=== PATIENT | female | born 1985 | race Caucasian/White ===

== ENCOUNTER → 2016-09-19 16:19 | Outpatient (CLI) | payer OTHER ==
[2016-09-19 16:38] LABS: BASOPHILS 0 % (0.0-2.0); EOSINOPHILS 0.7 % (0-7); HEMATOCRIT 41.7 % (36.0-48.0); IMMATURE GRANULOCYTES 0.1 % (0-5); LYMPHOCYTES 45.2 % (15-50); MCH 31.2 pg (26.0-34.0); MCHC 33.6 g/dL (31.0-37.0); MCV 92.9 fL (80.0-100.0); MEAN PLATELET VOLUME 10.4 fL (7.4-10.4); MONOCYTES 4.9 % (2-11); NEUTROPHILS 49.1 % (40-80); PLATELET COUNT 256 10x3/uL (130-400); RBC 4.49 10x6/uL (4.00-5.40); RDW 13.2 % (11.5-14.5); WBC 9.4 10x3/uL (4.8-10.8)
[2016-09-19 16:50] LABS: ALBUMIN 3.5 g/dL (3.4-5.0); ALKALINE PHOSPHATASE 70 U/L (46-116); ALT (SGPT) 28 U/L (10-68); BILIRUBIN - TOTAL 0.21 mg/dL (0.2-1.3); CALC OSMOLALITY 275 mosm/kg (275-300); CALCIUM 8.7 mg/dL (8.5-10.1); CARBON DIOXIDE 29.8 mmol/L (21.0-32.0); CHLORIDE - SERUM 103 mmol/L (98-107); CREATININE - SERUM 0.9 mg/dL (0.6-1.3); GLUCOSE 76 mg/dL (74-106); POTASSIUM - SERUM 3.6 mmol/L (3.5-5.1); PROTEIN - SERUM 7.2 g/dL (6.4-8.2); SODIUM 139 mmol/L (136-145); UREA NITROGEN 11 mg/dL (7-18); eGFR NON AFRICAN AMERICAN 76 mL/min (90-120)
[2016-09-23 13:12] LABS: EHRLICHIA CHAFF IGG Negative (Neg:<1:64); EHRLICHIA CHAFF IGM Negative (Neg:<1:20); HGE IGG TITER Negative (Neg:<1:64); HGE IGM TITER Negative (Neg:<1:20)
[2016-09-23 20:07] LABS: RMSF IGM 0.62 index (0.00-0.89)
[2016-10-03 08:21] LABS: F. TULARENSIS - IGG Negative (()); F. TULARENSIS - IGM Negative (())
== END | disposition home or self-care (01) ==
LOC: D.LABREF 16:19
PROVIDERS: Student in an Organized Health Care Education/Training Program
DX: R53.83 Other fatigue (principal)

== ENCOUNTER → 2016-10-17 11:34 | Outpatient (CLI) | payer OTHER ==
[2016-10-17 12:02] LABS: BASOPHILS 0.1 % (0.0-2.0); EOSINOPHILS 0.5 % (0-7); HEMATOCRIT 42.1 % (36.0-48.0); HEMOGLOBIN 14.2 g/dL (12-16); IMMATURE GRANULOCYTES 0.2 % (0-5); LYMPHOCYTES 36.2 % (15-50); MCH 31.1 pg (26.0-34.0); MCHC 33.7 g/dL (31.0-37.0); MCV 92.3 fL (80.0-100.0); MEAN PLATELET VOLUME 10.9 fL (7.4-10.4); MONOCYTES 3.5 % (2-11); NEUTROPHILS 59.5 % (40-80); PLATELET COUNT 230 10x3/uL (130-400); RBC 4.56 10x6/uL (4.00-5.40); RDW 13.1 % (11.5-14.5); WBC 11.6 10x3/uL (4.8-10.8)
[2016-10-17 12:07] LABS: ALBUMIN 3.4 g/dL (3.4-5.0); ALKALINE PHOSPHATASE 60 U/L (46-116); ALT (SGPT) 31 U/L (10-68); BILIRUBIN - TOTAL 0.26 mg/dL (0.2-1.3); CALC OSMOLALITY 279 mosm/kg (275-300); CALCIUM 8.6 mg/dL (8.5-10.1); CARBON DIOXIDE 29.1 mmol/L (21.0-32.0); CHLORIDE - SERUM 105 mmol/L (98-107); CREATININE - SERUM 0.9 mg/dL (0.6-1.3); GLUCOSE 83 mg/dL (74-106); POTASSIUM - SERUM 3.9 mmol/L (3.5-5.1); PROTEIN - SERUM 6.7 g/dL (6.4-8.2); SODIUM 141 mmol/L (136-145); UREA NITROGEN 12 mg/dL (7-18); eGFR NON AFRICAN AMERICAN 76 mL/min (90-120)
== END | disposition home or self-care (01) ==
LOC: D.LABREF 11:34
PROVIDERS: Student in an Organized Health Care Education/Training Program
DX: R53.83 Other fatigue (principal)

== ENCOUNTER 2017-07-23 08:40 | Emergency (ER) | payer OTHER | END 2017-07-23 11:20 | disposition home or self-care (01) | LOC: D.ER 08:40 | DX: R51 Headache (principal); F17.200 Nicotine dependence, unspecified, uncomplicated ==

== ENCOUNTER 2019-10-23 13:43 | Inpatient (IN) | payer OTHER ==
[~2019-10-23] VITALS: Ht 154.9 cm; Wt 99.5 kg
[2019-10-23 14:39] LABS: BASOPHILS 0 % (0-2); EOSINOPHILS 0 % (0-7); HEMATOCRIT 41.5 % (36.0-48.0); HEMOGLOBIN 13.7 g/dL (12-16); IMMATURE GRANULOCYTES 0.3 % (0-5); LYMPHOCYTES 3.5 % (15-50); MCH 28.9 pg (26.0-34.0); MCV 87.6 fL (80.0-100.0); MEAN PLATELET VOLUME 10.7 fL (7.4-10.4); MONOCYTES 4.2 % (2-11); PLATELET COUNT 251 10x3/uL (130-400); RBC 4.74 10x6/uL (4.00-5.40); RDW 14.2 % (11.5-14.5); WBC 12.7 10x3/uL (4.8-10.8)
[2019-10-23 14:50] LABS: INR 1.03 (0.85-1.17); PROTIME 13.5 SECONDS (11.6-15.0)
[2019-10-23 14:51] LABS: CALC OSMOLALITY 278 mosm/kg (275-300); CALCIUM 9.2 mg/dL (8.5-10.1); CARBON DIOXIDE 27.1 mmol/L (21.0-32.0); CHLORIDE - SERUM 101 mmol/L (98-107); CREATININE - SERUM 0.9 mg/dL (0.6-1.3); D-DIMER-QUANTITATIVE 0.83 ug/mLFEU (0.20-0.54); GLUCOSE 117 mg/dL (74-106); POTASSIUM - SERUM 3.4 mmol/L (3.5-5.1); SODIUM 140 mmol/L (136-145); UREA NITROGEN 11 mg/dL (7-18); eGFR NON AFRICAN AMERICAN 75 mL/min (90-120)
[2019-10-23 15:09] LABS: ALBUMIN 3.9 g/dL (3.4-5.0); ALKALINE PHOSPHATASE 77 U/L (30-120); ALT (SGPT) 19 U/L (10-68); C-REACTIVE PROTEIN 3.1 mg/dL (0.0-0.9); CREATINE KINASE 70 UL (21-215); PROTEIN - SERUM 7.7 g/dL (6.4-8.2); THYROID STIMULATING HORMONE 0.67 uIU/mL (0.36-3.74)
[2019-10-23 15:13] LABS: TROPONIN-I < 0.017 ng/mL (0.000-0.060)
--- NOTE | 2019-10-23 15:20 | NUR ---
LACTIC ACID OF 2.1
--- NOTE | 2019-10-23 16:10 | NUR ---
NEW WRIST BAND PLACED ON PATIENT.
[2019-10-23 16:28] LABS: BACTERIA FEW /hpf (NEGATIVE); BILIRUBIN NEGATIVE (NEGATIVE); EPITHELIAL CELLS OCC /hpf (0-5); GLUCOSE NEGATIVE (NEGATIVE); KETONE LARGE mg/dL (NEGATIVE); NITRITE NEGATIVE (NEGATIVE); RED CELLS - URINE NONE SEEN /hpf (0-5); UROBILINOGEN NORMAL (NORMAL)
--- NOTE | 2019-10-23 17:17 | NUR ---
PT MOVED TO A NEGATIVE PRESSURE ROOM. [facility] NOTIFIED OF PT BY Zeeshan KHOURY . PT WEARING MASK. ISOLATION SET UP.
[2019-10-23 18:24] VITALS: BP 95/55
--- NOTE | 2019-10-23 19:00 | NUR ---
RECIEVED REPORT FROM BARBARA CASTANO. PT LAYING IN BED. RESPIRATIONS ARE EVEN AND UNLABORED. NO DISTRESS NOTED. WILL CONTINUE TO MONITOR PATIENT.
[2019-10-23 20:03] VITALS: BP 124/70
--- NOTE | 2019-10-23 20:03 | NUR ---
PT SITTING UP IN BED. VSS. NO DISTRESS NOTED. PT VOICES NO COMPLAINTS AT THIS TIME. PT CONTINUES TO REMAIN IN ISOLATION AT THIS TIME. PT PROVIDED WITH BEDSIDE COMMODE. WILL CONTINUE TO MONITOR FOR CHANGES.
--- NOTE | 2019-10-23 21:20 | NUR ---
PT REPORTS THAT SHE IS STARTING TO FEEL FEVERISH AT THIS TIME. PT TEMP FOUND TO BE 102.4. ADELA LADMINISTER IBUPROFEN FOR TEMPERATURE.
--- NOTE | 2019-10-23 21:26 | NUR ---
PT WEARING MASK AND COVERED WITH SHEET WITH BELONGINGS UNDER SHEET FOR TRANSPORT. PROPER PROCEDURE FOR TRANSPORT FOLLOWED. WASHTUB WORKER, AND INFECTION CONTROL MADE AWARE OF TRANSFER PRIOR TO DEPARTING ED.
--- NOTE | 2019-10-23 21:26 | NUR ---
STREP SWAB OBTAINED AT THIS TIME.
[2019-10-23] MEDS ORDERED: BUPROPION XL300 MG PO (22:03)
[2019-10-23] MEDS ORDERED: OMEPRAZOLE20 M1 PO (22:04)
[2019-10-23 23:13] VITALS: BP 101/55; BMI 41.4
--- NOTE | 2019-10-24 00:17 | NUR ---
RECEIVED REPORT FROM BIJAL CASTANO IN ER. ARRIVED TO FLOOR ON STRETCHER. PLACED ON CONTACT AND DROPLET ISOLATION. ALERT AND ORIENTED X4. UP AD REVA. TEMP. 102 ON ARRIVAL. MOTRIN GIVEN IN ER. WHEN RECHECKED 101.1. TYLENOL GIVEN. IV TO LT FA WITH NS INFUSING. DENIES ANY NEEDS. ASSESSMENT COMPLETED.
[2019-10-24 01:20] VITALS: BP 104/52
[2019-10-24 05:09] LABS: BASOPHILS 0 % (0-2); EOSINOPHILS 0 % (0-7); HEMATOCRIT 35.2 % (36.0-48.0); HEMOGLOBIN 11.2 g/dL (12-16); IMMATURE GRANULOCYTES 0.3 % (0-5); LYMPHOCYTES 10.3 % (15-50); MCH 28.5 pg (26.0-34.0); MCHC 31.8 g/dL (31.0-37.0); MEAN PLATELET VOLUME 10.1 fL (7.4-10.4); MONOCYTES 3.5 % (2-11); NEUTROPHILS 85.9 % (40-80); RBC 3.93 10x6/uL (4.00-5.40); RDW 14.6 % (11.5-14.5)
[2019-10-24 05:12] LABS: MCV 89.6 fL (80.0-100.0); PLATELET COUNT 200 10x3/uL (130-400); WBC 7.1 10x3/uL (4.8-10.8)
[2019-10-24 05:27] LABS: ALKALINE PHOSPHATASE 53 U/L (30-120); ALT (SGPT) 21 U/L (10-68); C-REACTIVE PROTEIN 13.7 mg/dL (0.0-0.9); CALCIUM 7.9 mg/dL (8.5-10.1); CARBON DIOXIDE 26.8 mmol/L (21.0-32.0); CHLORIDE - SERUM 108 mmol/L (98-107); CREATININE - SERUM 0.8 mg/dL (0.6-1.3); GLUCOSE 100 mg/dL (74-106); POTASSIUM - SERUM 3.4 mmol/L (3.5-5.1); SODIUM 141 mmol/L (136-145); eGFR NON AFRICAN AMERICAN 86 mL/min (90-120)
[2019-10-24 05:29] LABS: ALBUMIN 2.6 g/dL (3.4-5.0); CALC OSMOLALITY 278 mosm/kg (275-300); PROTEIN - SERUM 5.6 g/dL (6.4-8.2); UREA NITROGEN 8 mg/dL (7-18)
[2019-10-24 05:53] VITALS: BP 108/52
--- NOTE | 2019-10-24 06:27 | NUR ---
TEMP. ELEVATED TO 101.7. ACETAMENOPHEN 650 MG GIVEN. WILL REPORT TO ONCOMMING.
[2019-10-24 09:02] VITALS: BP 101/64
--- NOTE | 2019-10-24 09:10 | NUR ---
PT AWAKE AND ORIENTED, LYING IN BED WATCHING TV. MOVES ABOUT ROOM UNASSISTED. ENTERED ROOM FOLLOWING PROPPER PROTOCOL. V/S DOCUMENTED. NO FEVER NOTED AT THIS TIME. PTS HOME MEDS RESTARTED PER MARKUS ANDERSEN. NO COMPLAINT OR CONCERNS AT THIS TIME. PT HAS DARK CIRCLES UNDER HER EYES AND STATES LACK OF APPITITE X2 DAYS. IV INTACT AND WORKING, PT CHANGED INTO MORE COMFORTABLE CLOTHES. CL IN REACH, SRX2.
--- NOTE | 2019-10-24 10:20 | NUR ---
I have reviewed this patient and I concur with the Shift Assessment completed by the Licensed Practical Nurse today this shift.
[2019-10-24 11:45] VITALS: Ht 154.9 cm; Wt 99.5 kg
[2019-10-24 11:48] VITALS: BP 106/51
[2019-10-24 12:04] LABS: % SATURATION 5 % (15-55); IRON 15 ug/dl (35-150); TOTAL IRON BIND CAPACITY 281 ug/dl (260-445); UNSAT IRON BIND CAPACITY 266 ug/dl (150-375)
[2019-10-24 12:26] LABS: MAGNESIUM - SERUM 1.6 mg/dL (1.8-2.4)
[2019-10-24 16:14] VITALS: BP 116/57
--- NOTE | 2019-10-24 18:22 | NUR ---
PT AWAKE AND ORIENTED, SITTING IN THE BED. C/O COUGH/CONGESTION. NO OTHER COMPLAINTS OR CONCERNS AT THIS TIME. CL IN REACH, SRX12.
--- NOTE | 2019-10-24 20:21 | NUR ---
RECEIVED UP IN BED WITH EYES OPEN AND TV ON. ALERT AND ORIENTED X4. UP AD REVA. IV TO LT FA WITH NS AT 100CC/HR. NO REDNESS OR SWELLING TO SITE. CONT TO HAVE A COUGH. C/O TESSALON NOT WORKING. ALSO, C/O SORE THROAT. SAID SHE THINKS IT'S FROM COUGHING SO MUCH. DENIES ANY NEEDS LITA JONES.
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
[2019-10-25 02:27] VITALS: BP 108/68
[2019-10-25 06:17] VITALS: BP 118/66
[2019-10-25 08:52] VITALS: BP 136/77
[2019-10-25 09:02] LABS: CALC OSMOLALITY 275 mosm/kg (275-300); CALCIUM 8.1 mg/dL (8.5-10.1); CHLORIDE - SERUM 109 mmol/L (98-107); CREATININE - SERUM 0.7 mg/dL (0.6-1.3); GLUCOSE 90 mg/dL (74-106); POTASSIUM - SERUM 3.2 mmol/L (3.5-5.1); SODIUM 140 mmol/L (136-145); eGFR NON AFRICAN AMERICAN > 90 mL/min (90-120)
[2019-10-25 09:05] LABS: BASOPHILS 0.2 % (0-2); EOSINOPHILS 0.4 % (0-7); HEMATOCRIT 36.6 % (36.0-48.0); HEMOGLOBIN 11.8 g/dL (12-16); IMMATURE GRANULOCYTES 0.2 % (0-5); LYMPHOCYTES 20.4 % (15-50); MCH 28.1 pg (26.0-34.0); MCHC 32.2 g/dL (31.0-37.0); MEAN PLATELET VOLUME 10.4 fL (7.4-10.4); MONOCYTES 6.4 % (2-11); NEUTROPHILS 72.4 % (40-80); PLATELET COUNT 229 10x3/uL (130-400); RDW 14.6 % (11.5-14.5)
[2019-10-25 09:06] LABS: UREA NITROGEN 5 mg/dL (7-18)
[2019-10-25 09:13] LABS: MCV 87.1 fL (80.0-100.0); WBC 5.2 10x3/uL (4.8-10.8)
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
--- NOTE | 2019-10-25 12:14 | NUR ---
PT ALERT AND ORIENTED, DENIES LUNCH TRAY WITH BREAKFAST TRAY. JUST WANTS BOTTLE OF WATER. STILL UPSET AND WANTING TO D/C D/T NOT LIKING ISOLATION AND FEELING CLASTROPHOBIC. SPOKE TO MARKUS BENOIT WELL DR. TSE. CL IN REACH SRX2. WILL CNT. TO MONITOR.
--- NOTE | 2019-10-25 15:15 | NUR ---
I have reviewed this patient and I concur with the Shift Assessment completed by the Licensed Practical Nurse today this shift.
--- NOTE | 2019-10-25 15:16 | MORECARE ---
CASE MANAGEMENT DISCHARGE SUMMARY PATIENT: LAYNE LANE UNIT: [id number] ADM DATE: 10/23/19 AGE: 34 : 81 SEX: F ROOM/BED: D.2101 AUTHOR: YUSEF ALMEIDA PHYSICIAN: REFERRING PHYSICIAN: DYANA DE MD DATE OF SERVICE: 10/25/19 Discharge Plan Patient Name: LAYNE LANE [facility] [facility] 1985 Planned Disposition: Home Anticipated Discharge Date: 10/25/19 Discharge Date: Expected LOS: 2 Initial Reviewer: [email or web address] Initial Review Date: 10/24/2019 Generated: 10/25/19 4:16 pm DCPIA - Discharge Planning Initial Assessment Updated by [email or web address]: Johnny Michaud on 10/25/19 3:16 pm * Is the patient Alert and Oriented? Yes * How many steps to enter\exit or inside your home? * PCP DR. MURPHY NAPLES * Pharmacy [facility] OR [facility] [facility] * Preadmission Environment Home with Family * ADLs Independent * Equipment None * Other Equipment NO MEDICAL EQUIPMENT PROVIDER PREFERENCE * List name and contact numbers for known caregivers / representatives who currently or will assist patient after discharge: JAYNE LANE, SPOUSE, * Verbal permission to speak to the caregivers and representatives has been obtained from the patient. N/A * Community resources currently utilized None * Please name any agencies selected above. NONE * Additional services required to return to the preadmission environment? No * Can the patient safely return to the preadmission environment? Yes * Has this patient been hospitalized within the prior 30 days at any hospital? No Patient Name: LAYNE LANE Page [id number] at 1516 All edits/amendments must be made on the electronic document DICTATION DATE: 10/25/19 151 TRANSVERSE ABDOMINAL MUSCLE NURSE: CHELI 10/25/191515 RPT#: [id number] DC DATE: STATUS: ADM IN [facility] [address] [place] [address] END OF REPORT
--- NOTE | 2019-10-25 15:24 | MORECARE ---
CASE MANAGEMENT DISCHARGE SUMMARY PATIENT: LAYNE LANE UNIT: [id number] ADM DATE: 10/23/19 AGE: 34 : 81 SEX: F ROOM/BED: D.2105 AUTHOR: ELLE,DOC PHYSICIAN: REFERRING PHYSICIAN: DYANA DE MD DATE OF SERVICE: 10/25/19 Discharge Plan Patient Name: LAYNE LANE Facility: [facility]:[place] : 1985 Planned Disposition: Home Anticipated Discharge Date: 10/25/19 Discharge Date: Expected LOS: 2 Initial Reviewer: [email or web address] Initial Review Date: 10/24/2019 Generated: 10/25/19 4:24 pm Comments DCP- Discharge Planning Updated by [email or web address]: Johnny Michaud on 10/25/19 2:[address] Patient Name: ALYNE LANE Admission Status: ER Accout number: [id number] Admission Date: 10-23-2019 : 1985 Admission Diagnosis: Attending: DYANA DE Current LOS: 2 Anticipated DC Date: 10-25-2019 Planned Disposition: Home Primary Insurance: [facility] Discharge Planning Comments: CM MET WITH PT IN ROOM TO DISCUSS DISCHARGE PLANNING AND NEEDS. PT REPORTS LIVING AT HOME INDEPENDENTLY WITH HER SPOUSE. PT HAS NO MEDICAL EQUIPMENT AND NO OUTSIDE SERVICES ASSISTING IN THE HOME. CM DISCUSSED AVAILABILITY OF HOME HEALTH, REHAB SERVICES AND MEDICAL EQUIPMENT. PT DENIES DISCHARGE NEEDS, REPORTS HER SPOUSE WILL PICK HER UP FOR DISCHARGE HOME. PT REPORTS ABILITY TO SELF QUARANTINE AT HOME. 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 PT ASKED THAT DR. BERTO TSE HAVE ACCESS TO HER MEDICAL RECORDS. RELEASE OF INFORMATION COMPLETED BY PT AND PLACE IN CHART. PT DENIES DISCHARGE NEEDS, REPORTS ABILITY TO SELF QUARANTINE AT HOME. SPOUSE TO TRANSPORT HOME. PT DENIES DISCHARGE NEEDS AT THIS TIME. CM TO FOLLOW AND ASSIST NEEDED. Skiagrapher: Johnny Michaud DCPIA - Discharge Planning Initial Assessment Updated by [email or web address]: Johnny Michaud on 10/25/19 3:16 pm * Is the patient Alert and Oriented? Yes * How many steps to enter\exit or inside your home? * PCP KRISHNA WISE * Pharmacy [facility] OR [facility] * Preadmission Environment Home with Family * ADLs Independent * Equipment None * Other Equipment NO MEDICAL EQUIPMENT PROVIDER PREFERENCE * List name and contact numbers for known caregivers / representatives who currently or will assist patient after discharge: JAYNE LANE, SPOUSE, * Verbal permission to speak to the caregivers and representatives has been obtained from the patient. N/A * Community resources currently utilized None * Please name any agencies selected above. NONE * Additional services required to return to the preadmission environment? No * Can the patient safely return to the preadmission environment? Yes * Has this patient been hospitalized within the prior 30 days at any hospital? No Last DP export: 10/25/19 2:16 p Patient Name: LAYNE LANE Page [phone] at 1524 All edits/amendments must be made on the electronic document DICTATION DATE: 10/25/191523 PROFESSOR OF LAW: CHELI 10/25/194 RPT#: [id number] DC DATE: STATUS: ADM IN [facility] [address] [place] [address] END OF REPORT
[2019-10-25] MEDS ORDERED: Tessalon Perle PO (15:38)
[2019-10-25] MEDS ORDERED: MUCINEX600 MG PO (15:39)
--- NOTE | 2019-10-25 17:13 | NUR ---
PT ESCORTED OUT VIA [facility] WITH APPROPRIATE PPE ON PER INFECTION CONTROL. WHEELCAHIR FROM RIDE TAKEN INTO ROOM TO BE PROPPERLY DECONTAMINATED. CL IN REACH, SRX2.
--- NOTE | 2019-10-26 08:24 | MORECARE ---
CASE MANAGEMENT DISCHARGE SUMMARY PATIENT: LAYNE LANE UNIT: [id number] ADM DATE: 10/23/19 AGE: 34 : 81 SEX: F ROOM/BED: D.2105 AUTHOR: ELLE,DOC PHYSICIAN: REFERRING PHYSICIAN: DYANA DE MD DATE OF SERVICE: 10/26/19 Discharge Plan Patient Name: LAYNE LANE Facility: [facility]:[place] : 1985 Planned Disposition: Home Anticipated Discharge Date: 10/25/19 Discharge Date: 10/25/2019 Expected LOS: 2 Initial Reviewer: [email or web address] Initial Review Date: 10/24/2019 Generated: 10/26/19 9:24 am Comments DCP- Discharge Planning Updated by [email or web address]: Johnny Michaud on 10/25/19 2:[address] Patient Name: LAYNE LNAE Admission Status: ER Accout number: [id number] Admission Date: 10-23-2019 : 1985 Admission Diagnosis: Attending: DYANA DE Current LOS: 2 Anticipated DC Date: 10-25-2019 Planned Disposition: Home Primary Insurance: [facility] Discharge Planning Comments: CM MET WITH PT IN ROOM TO DISCUSS DISCHARGE PLANNING AND NEEDS. PT REPORTS LIVING AT HOME INDEPENDENTLY WITH HER SPOUSE. PT HAS NO MEDICAL EQUIPMENT AND NO OUTSIDE SERVICES ASSISTING IN THE HOME. CM DISCUSSED AVAILABILITY OF HOME HEALTH, REHAB SERVICES AND MEDICAL EQUIPMENT. PT DENIES DISCHARGE NEEDS, REPORTS HER SPOUSE WILL PICK HER UP FOR DISCHARGE HOME. PT REPORTS ABILITY TO SELF QUARANTINE AT HOME. 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 PT ASKED THAT DR. BERTO TSE HAVE ACCESS TO HER MEDICAL RECORDS. RELEASE OF INFORMATION COMPLETED BY PT AND PLACE IN CHART. PT DENIES DISCHARGE NEEDS, REPORTS ABILITY TO SELF QUARANTINE AT HOME. SPOUSE TO TRANSPORT HOME. PT DENIES DISCHARGE NEEDS AT THIS TIME. CM TO FOLLOW AND ASSIST NEEDED. Inspecting Engineer: Johnny Michaud DCPIA - Discharge Planning Initial Assessment Updated by [email or web address]: Johnny Michaud on 10/25/19 3:16 pm * Is the patient Alert and Oriented? Yes * How many steps to enter\exit or inside your home? * PCP KRISHNA WISE * Pharmacy [facility] OR [facility] * Preadmission Environment Home with Family * ADLs Independent * Equipment None * Other Equipment NO MEDICAL EQUIPMENT PROVIDER PREFERENCE * List name and contact numbers for known caregivers / representatives who currently or will assist patient after discharge: JAYNE LANE, SPOUSE, * Verbal permission to speak to the caregivers and representatives has been obtained from the patient. N/A * Community resources currently utilized None * Please name any agencies selected above. NONE * Additional services required to return to the preadmission environment? No * Can the patient safely return to the preadmission environment? Yes * Has this patient been hospitalized within the prior 30 days at any hospital? No Last DP export: 10/25/19 2:24 p Patient Name: LAYNE LANE Page [phone] at 0824 All edits/amendments must be made on the electronic document DICTATION DATE: 10/26/19823 EXECUTIVE COMPENSATION ANALYST: CHELI 10/26/19823 RPT#: [id number] DC DATE:10/25/19 STATUS: DIS IN [facility] [address] [place] [address] END OF REPORT
== END 2019-10-25 17:13 | disposition home or self-care (01) | DRG 153 ==
LOC: D.ER 13:43 → D.M2 20:06
PROVIDERS: Emergency Medicine; Family Medicine; ADMIT Internal Medicine Nephrology; ATTEND Internal Medicine Nephrology
DX: J06.9 Acute upper respiratory infection, unspecified (principal); E44.0 Moderate protein-calorie malnutrition; Z68.41 Body mass index [BMI] 40.0-44.9, adult; Z20.828 Contact with and (suspected) exposure to other viral communicable diseases; D50.9 Iron deficiency anemia, unspecified; E87.6 Hypokalemia; K21.9 Gastro-esophageal reflux disease without esophagitis; G35 Multiple sclerosis

== ENCOUNTER → 2020-02-29 07:36 | Outpatient (CLI) | payer OTHER ==
[2019-10-24 11:45] VITALS: BMI 41.4
[~2020-02-29 07:36] MED LIST: BUPROPION XL300 MG PO; MUCINEX600 MG PO; OMEPRAZOLE20 M1 PO; Tessalon Perle PO
== END | disposition home or self-care (01) ==
LOC: D.MRI 07:36
PROVIDERS: ATTEND Orthopaedic Surgery
DX: M25.571 Pain in right ankle and joints of right foot (principal)